=== PATIENT | female | born 1980 | race Caucasian/White ===

== ENCOUNTER 2016-11-23 20:16 | Emergency (ER) | payer SELFPAY ==
[2016-11-23] MEDS ORDERED: KETOROLAC TROMETHAMINE 60 MG/2 ML VIAL ONE (20:56)
[2016-11-23] MEDS ORDERED: CYCLOBENZAPRINE HCL 10 MG TABLET ONE (20:57)
== END 2016-11-23 21:11 | disposition home or self-care (01) ==
LOC: ED 20:16
DX: M54.2 Cervicalgia (principal); S29.012A Strain of muscle and tendon of back wall of thorax, initial encounter; M25.511 Pain in right shoulder; J45.909 Unspecified asthma, uncomplicated; F17.210 Nicotine dependence, cigarettes, uncomplicated; X58.XXXA Exposure to other specified factors, initial encounter; Y92.9 Unspecified place or not applicable
CPT/HCPCS: 99283 ×2; J1885